=== PATIENT | male | born 1980 | race Caucasian/White ===

== ENCOUNTER 2018-11-08 18:35 | Inpatient (IN) | payer MEDICARE ==
[~2018-11-08] VITALS: Ht 170.2 cm; Wt 49.4 kg
--- NOTE | ~2018-11-08 | OP ---
[address] [address] OPERATIVE REPORT Name: JEANINE ACE JR Room: [address] IN .R.#: [id number] Admission: 11/08/18 Attend Phys: Franny Garcia MD Discharge: Date of : 82 Report #: [id number] THIS REPORT FOR: //name// CC: [facility] physician/PCP Franny Garcia SURGEON: Jose David Rebolledo MD PREOPERATIVE DIAGNOSES: Right ureteral stone with pain. POSTOPERATIVE DIAGNOSES: Right ureteral stone with pain. PROCEDURE: Panendoscopy, cystoscopy, right retrograde pyelogram, right ureteroscopy with laser stone, extraction of stone, multiple and double-J stent placement. No complications. INDICATIONS: This is a 38-year-old male who has severe right flank pain. He has a proximal right ureteral stone. He was given all options for treatment and he wished to have ureteroscopy with laser. He understands risk of bleeding, infection and other procedures. He understands that he will have a ureteral stent in place and that it must be removed. He understands also and voiced understanding that he knows there would be severe complications if he did not have the stent removed. He understands these risks and wished to proceed. I also informed him he has had bilateral kidney stones and that we would not operate on the left side, only the right but we get all the stones out that we could. DESCRIPTION OF PROCEDURE: Informed consent was obtained. The patient was sterilely prepped and draped in dorsolithotomy position and given appropriate antibiotics. Cystoscopy was carried out. He had somewhat of a deep bulbar stricture, but I was able to get the scope through it. No other abnormalities seen in the bladder. Right retrograde pyelogram was performed, which showed a filling defect in the proximal right ureter. A sensor wire and a ZIPwire were used as a safety wire and then the distal ureter was dilated using an 18-Persian balloon dilator. I did it very gently under hand pressure, only large enough to get the ureteral access sheath in. The 11 x 13 x 36 cm ureteral access sheath then was placed very easily and atraumatically up into the mid ureter level. The flexible ureteroscope was then used and the stone was first seen in the proximal ureter, broken into small pieces, that stone was very jagged but it broke into tiny pieces. There was only one that needed to be extracted with the 0 tip nitinol. I then looked up into the kidney and inspected all calices. I found 2 other stones which were then progressively broken up into small pieces. There were several pieces in the 2-3 mm range that I did extract and then the only thing left at the end were tiny pieces, 1 mm or less. There was no evidence of any other injuries or problems with the ureter. The ureteroscope was looked out and no injury from the ureteral access sheath or the ureteroscope. A 4.8 x 28 stent was then placed [place] [address] OPERATIVE REPORT Name: JEANINE ACE JR Room: [address] IN M..#: [id number] Admission: 11/08/18 Attend Phys: Franny Garcia MD Discharge: Date of : 82 Report #: [id number] and good curl in the bladder. The plan will be to remove the stent in approximately 7-10 days. He will also need a metabolic workup By: [id number] Rebolledo MD /nt
[~2018-11-08 18:35] MED LIST: ACETAMINOPHEN-1 EAC1 PO; ATIVAN1 MG PO; CIPRO500 MG PO; DEPAKOTE 250MG250 M1 PO; DIAZEPAM 5 MG5 M1 RECTAL; FLEXERIL PO; IBUPROFEN 800800 MG PO; PERCOCET; PERCOCET 7.5-31 EACH PO; VALIUM5 MG PO
[2018-11-08 18:43] VITALS: BP 123/72
[2018-11-08 19:32] LABS: ABSOLUTE LYMPHOCYTES 2.7 thou/uL (0.8-5.3); ABSOLUTE MONOCYTES 1.9 thou/uL (0.0-1.2); ABSOLUTE NEUTROPHILS 14.2 thou/uL (1.6-8.1); BASOPHILS 0.2 %; EOSINOPHILS 0.2 %; HEMOGLOBIN 13.5 gm/dL (14.0-18.0); LYMPHOCYTES 14.1 %; MCH 29.8 pg (26.0-34.0); MCHC 33.8 g/dL (28.0-37.0); MCV 88.2 fL (80.0-100.0); MONOCYTES 10.2 %; MPV 8.2 fl. (7.2-11.1); NUCLEATED RBCS 0 /100WBC; PLATELET COUNT* 256 thou/uL (150-400); POLYS 75.3 %; RBC 4.54 mil/uL (4.50-6.00); RDW-CV 12.7 % (10.5-14.5); WBC 18.9 thou/uL (4.0-11.0)
[2018-11-08 19:41] LABS: CALCIUM 9.4 mg/dL (8.5-10.1); CREATININE 1.3 mg/dL (0.6-1.3); POTASSIUM 3.3 mmol/L (3.5-5.1)
[2018-11-08 19:45] LABS: ALBUMIN 4.2 g/dL (3.4-5.0); TOTAL BILIRUBIN 0.5 mg/dL (<0.1-1.0); TOTAL PROTEIN 7.7 g/dL (6.4-8.2)
[2018-11-08 21:37] LABS: URINE BILIRUBIN NEGATIVE (Negative); URINE BLOOD 3+ (Negative); URINE CLARITY CLEAR; URINE COLOR YELLOW; URINE GLUCOSE-RANDOM NEGATIVE (Negative); URINE KETONES 1+ (Negative); URINE LEUKOCYTES-REFLEX NEGATIVE (Negative); URINE NITRITE-REFLEX NEGATIVE (Negative); URINE PROTEIN NEGATIVE (Negative); URINE UROBILINOGEN 0.2 E.U./dl (0.2-1.0)
[2018-11-08 21:44] LABS: AMP/METHAMP Negative (Negative); BARBITURATES Negative (Negative); BENZODIAZEPINES Negative (Negative); COCAINE Negative (Negative); METHADONE Negative (Negative); OPIATES POSITIVE (Negative); PCP Negative (Negative); THC Negative (Negative)
[2018-11-08 21:55] VITALS: BP 110/54
[2018-11-08 22:00] VITALS: BP 101/82
[2018-11-08 22:04] LABS: SQUAMOUS 0-3 Few /LPF (0-3)
[2018-11-08 22:05] LABS: CASTS None Seen /LPF (None Seen)
[2018-11-08 22:08] LABS: CALCIUM OXALATE 0-3 Few /LPF (None Seen); MUCUS 4-6 Moderate strn/LPF (None Seen); URINE RBC >20 Many /HPF (0-2); URINE WBC-REFLEX 0-5 Rare /HPF (0-5)
[2018-11-09 04:15] LABS: ABSOLUTE LYMPHOCYTES 2.5 thou/uL (0.8-5.3); ABSOLUTE MONOCYTES 1.2 thou/uL (0.0-1.2); ABSOLUTE NEUTROPHILS 5.8 thou/uL (1.6-8.1); BASOPHILS 0.4 %; EOSINOPHILS 0.4 %; HEMOGLOBIN 11.8 gm/dL (14.0-18.0); MCH 29.8 pg (26.0-34.0); MCHC 33.7 g/dL (28.0-37.0); MCV 88.5 fL (80.0-100.0); MONOCYTES 12.4 %; MPV 8.2 fl. (7.2-11.1); NUCLEATED RBCS 0 /100WBC; PLATELET COUNT* 200 thou/uL (150-400); POLYS 60.8 %; RBC 3.95 mil/uL (4.50-6.00); WBC 9.6 thou/uL (4.0-11.0)
[2018-11-09 04:25] LABS: CALCIUM 8.3 mg/dL (8.5-10.1); CREATININE 1.2 mg/dL (0.6-1.3)
--- NOTE | 2018-11-09 06:43 | NUR ---
PT ARRIVED 11/07/18 AT 2200, PT IS ALERT AND ORINETED, PT COMPLAINING OF CONTINUED LLQ PAIN AND NAUSEA, PT ASSESSMENT COMPLETE, VITAL SIGNS OBTAINED, PT INTRODUCED TO SURROUNDINGS, PT MEDICATED FOR PAIN AND NAUSEA, IVF INITIATED, PT EATS FOOD THAT BRINGS, NO VOMITING, THEN NPO AFTER MIDNIGHT, PT CONTINUES TO COMPLAIN OF ABD PAIN AND NAUSEA THROUGHOUT THE NIGHT, CONTROLLED WITH PO AND IV MEDICATIONS, PT VOIDS X1 DARK YELLOW, FOUL SMELLING URINE, NO CALCULI NOTED IN STRAINER, PT NOW RESTING WITH EYES CLOSED, CALL LIGHT WITHIN REACH, UROLOGY CONSULT HAS BEEN CALLED
[2018-11-09 08:10] VITALS: BP 97/64
--- NOTE | 2018-11-09 11:40 | EKG ---
[place] [address] ELECTROCARDIOGRAM REPORT Name: JEANINE ACE JR Room: [address] ADM IN M.R.#: [id number] Admission: 11/08/18 Attend Phys: Franny Garcia MD Discharge: Date of : 82 Report #: [id number] THIS REPORT FOR: //name// [facility] ED Test Date: 2018-11-08 Test Time: 19:33:35 Pat Name: JEANINE ACE Department: Room: [facility] Gender: M Training And Development Officer: Theresa LINDSEY : 1980 Requested By: Renu Melo Order Number: [id number] MD: Francis Urbina Measurements Intervals [place] Rate: 59 P: [place]: QRS: 70 QRSD: 157 T: 66 QT: 422 QTc: 418 Interpretive Statements nsr Nonspecific intraventricular conduction delay Compared to ECG 02/25/2014 10:46:29 Intraventricular conduction delay now present Sinus rhythm no longer present Short [place] interval no longer present Electronically Signed On 11-09-2018 11:39:53 CDT by Francis Urbina [email or web address] <ELECTRONICALLY SIGNED> By: Francis Urbina MD, [facility] 11/09/18 1139 32 32 Francis Urbina MD, [facility] /EPI
[2018-11-09 13:45] LABS: URINE BILIRUBIN NEGATIVE (Negative); URINE BLOOD NEGATIVE (Negative); URINE CLARITY CLEAR; URINE COLOR YELLOW; URINE GLUCOSE-RANDOM NEGATIVE (Negative); URINE KETONES NEGATIVE (Negative); URINE LEUKOCYTES-REFLEX NEGATIVE (Negative); URINE NITRITE-REFLEX NEGATIVE (Negative); URINE PROTEIN NEGATIVE (Negative); URINE SPECIFIC GRAVITY 1.025 (1.005-1.030); URINE UROBILINOGEN 0.2 E.U./dl (0.2-1.0)
[2018-11-09 16:00] VITALS: BP 98/52
--- NOTE | 2018-11-09 18:08 | NUR ---
ASSUMED CARE OF PATIENT AT APPROX 0730. ALERT AND ORIENTED X4. ASSESSMENT COMPLETED AND CHARTED. VSS ON ROOM. PAIN MANAGED WITH IV FENTANYL AND HYDROCODONE. FLUIDS INFUSED ORDERED. PATIENT USING URINAL AND URINE BEING STRAINED AND OBSERVED FOR STONE. PATIENT RESTED IN BED THROUGHOUT SHIFT. CALL LIGHT PLACED IN REACH AND PATIENT USES IT APPROPRIATELY. STAND BY ASSIST FOR AMBULATION. HOURLY ROUNDS COMPLETED. NURSING WILL CONTINUE TO MONITOR.
[2018-11-09 19:45] VITALS: BP 110/70
[2018-11-10 04:43] LABS: CALCIUM 8.5 mg/dL (8.5-10.1); CREATININE 1.1 mg/dL (0.6-1.3); POTASSIUM 4.2 mmol/L (3.5-5.1)
--- NOTE | 2018-11-10 05:49 | NUR ---
PT REMAINE ALERT AND ORIENTED. VITALS STABLE RA. MEDS GIVEN ORDERED. PAIN MANAGED WITH FENTANYL AND HYDROCODONE. NAUSEA RESOLVED WITH ZOFRAN. PT WALKED 200+ FEET IN HALLWAY WITH GAITBELT, CGA. NPO AT MIDNIGHT. WILL CONTINUE TO MONITOR.
[2018-11-10 08:00] VITALS: BP 109/53
[2018-11-10 08:38] LABS: ABSOLUTE EOSINOPHILS 0.3 thou/uL (0.0-0.7); ABSOLUTE LYMPHOCYTES 2.5 thou/uL (0.8-5.3); ABSOLUTE MONOCYTES 0.3 thou/uL (0.0-1.2); ABSOLUTE NEUTROPHILS 1.5 thou/uL (1.6-8.1); BASOPHILS 0.6 %; EOSINOPHILS 6.5 %; HEMATOCRIT 32.5 % (42.0-52.0); HEMOGLOBIN 11.1 gm/dL (14.0-18.0); LYMPHOCYTES 54.3 %; MCH 30.4 pg (26.0-34.0); MCHC 34.2 g/dL (28.0-37.0); MCV 88.9 fL (80.0-100.0); MONOCYTES 5.5 %; MPV 8.5 fl. (7.2-11.1); NUCLEATED RBCS 0 /100WBC; PLATELET COUNT* 170 thou/uL (150-400); POLYS 33.1 %; RBC 3.65 mil/uL (4.50-6.00); WBC 4.6 thou/uL (4.0-11.0)
[2018-11-10 08:53] LABS: ALBUMIN 3.1 g/dL (3.4-5.0); TOTAL BILIRUBIN 0.4 mg/dL (<0.1-1.0); TOTAL PROTEIN 5.7 g/dL (6.4-8.2)
[2018-11-10 17:35] VITALS: BP 134/67
--- NOTE | 2018-11-10 18:39 | NUR ---
PT A&Ox4. VITALS STABLE. PAIN CONTROLLED WITH FENTANYL. NAUSEA CONTROLLED WITH ZOFRAN. IV PATENT, INFUSING. URINE STRAINED, NO STONES FOUND. UP WITH ASSIST. TOLERATING SOME FOODS. WILL BE NPO AFTER MIDNIGHT. CALL LIGHT WITHIN REACH. WILL CONTINUE TO MONITOR.
[2018-11-10 21:10] VITALS: BP 100/64
--- NOTE | 2018-11-10 21:21 | CON ---
[address] [address] CONSULTATION Name: DBJEANINE BERUMEN Room: [address] IN .R.#: [id number] Admission: 11/08/18 Attend Phys: Franny Garcia MD Discharge: Date of : 82 Report #: [id number] THIS REPORT FOR: //name// CC: [facility] physician/PCP Franny Garcia DATE OF SERVICE: 11/09/2018 REFERRING PHYSICIAN: Dr. Garcia. REASON FOR CONSULTATION: Flank pain and urinary tract calculi. HISTORY OF PRESENT ILLNESS: This is a 38-year-old male who reports spontaneous passage of multiple stones in the past. Denies seeing urologist about these. Denies requiring stone procedures. He reports acute onset of left-sided flank pain, alternating with right-sided flank pain yesterday. This was accompanied by nausea. Denies fever, chills, vomiting, hematuria or dysuria. He reports some frequency and urgency. He was seen in the Emergency Department and admitted for further evaluation and management and Urology was consulted. He passed a stone in the Emergency Department, which was reportedly approximately 5 mm diameter. This has been sent for analysis. He reports persistent left flank pain despite that. PAST MEDICAL HISTORY: As above. 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 ALLERGIES: INCLUDE LATEX, VERSED AND PENICILLINS. MEDICATIONS: List is reviewed. He has been started on Rocephin empirically as well as Flomax for medical expulsive therapy. SOCIAL HISTORY: He denies use of tobacco or recreational drugs. Reports occasional alcohol use. FAMILY HISTORY: Significant for stones. He does not know of any other renal problems in the family. REVIEW OF SYSTEMS: As per the history of present illness. Denies cough, shortness of breath, chest pain or palpitations. No diarrhea or constipation. No dizziness or visual change. Otherwise, as per HPI. PHYSICAL EXAMINATION: VITAL SIGNS: Temperature 36.7, pulse 67, respirations 16, blood pressure 97/64. GENERAL: This is a 38-year-old male in no acute distress. He is awake, alert [place] [address] CONSULTATION Name: JEANINE ACE JAMAICA DAMICO Room: [address] IN [facility]#: [id number] Admission: 11/08/18 Attend Phys: Franny Garcia MD Discharge: Date of : 82 Report #: [id number] HEENT: Unremarkable. Extraocular movements are intact. Oropharynx is clear. NECK: Supple. No JVD. CHEST WALL: Nontender. CARDIOVASCULAR: Rhythm is regular. Radial pulses are palpable. Respiratory effort and excursion are normal. ABDOMEN: Soft, nontender, and nondistended. He reports tenderness in both costovertebral angles. Spine is nontender. EXTREMITIES: Warm. Moves all extremities. No peripheral edema. Radial pulses are palpable. LABORATORY DATA: Include hemoglobin 11.8, white count 9.6, platelet count 200,000. Sodium 144, potassium 4.0, chloride 111, CO2 of 22, BUN 30, creatinine 1.2, glucose 96. Urinalysis revealed greater than 20 red cells, 0-5 white cells. Blood cultures are pending. I have ordered a urine culture. Noncontrast CT scan revealed bilateral renal calcifications as well as mild left hydronephrosis and perinephric/periureteral stranding with a 5 x 3 mm calculus in the region of the left ureterovesical junction and a 5 x 4 x 3 mm calculus in the region of the right ureteropelvic junction. Follow up KUB today shows persistence of the right ureteropelvic junction calculus. The left-sided distal ureteral calculus is not visualized, likely related to his stone passage in the Emergency Department. Of note, contrast was noted in the bladder on the KUB. I spoke with Radiology about that and was told that the CT scan was originally ordered as a contrast study, but that he had a contrast extravasation at the IV site and so an injection was halted. Contrast on KUB is likely a result of excretion of the contrast. Some of the appearance of calcification on the CT scan may have been related to a small amount of intravenous contrast as well. IMPRESSION: Bilateral flank pain, possible bilateral renal calculi, right ureteropelvic junction stone (5 mm). Findings and options for management were discussed at length with the patient. We discussed medical expulsive therapy, outpatient ESWL for his right ureteropelvic junction calculus, inpatient versus outpatient cystoscopy with retrograde pyelogram, stent placement, possible right ureteroscopy. Risks and benefits of various approaches were discussed and he would like to try medical expulsive therapy. PLAN: He is on intravenous fluids, Flomax has been started. He is on empiric antibiotics. Stone analysis has been sent. We will follow up with a KUB and repeat BMP tomorrow and await results of his urine culture and stone analysis. <ELECTRONICALLY SIGNED> By: Jamaica Lindsey MD 11/10/18 2121 1315 0041Jamaica Lindsey MD /nt
--- NOTE | 2018-11-11 06:43 | NUR ---
PT REMAINED ALERT AND ORIENTED. VITALS, SpO2 STABLE. MEDS GIVEN ORDERED. PAIN MANAGED WITH FENTANYL AND HYDROCODONE. NPO AT MIDNIGHT FOR POSSIBLE UROLOGY PROCEDURE. WILL CONTINUE TO MONITOR.
[2018-11-11 08:00] VITALS: BP 120/70
[2018-11-11 10:01] VITALS: BP 120/70
--- NOTE | 2018-11-11 14:22 | NUR ---
PT ARRIVED BACK FROM SURGERY ABOUT 1415. STABLE. IN SOME PAIN, TOLERABLE. VITALS STABLE. WILL CONTINUE TO MONITOR.
[2018-11-11 15:27] VITALS: BP 129/80
[2018-11-11 16:58] VITALS: BP 129/80
[2018-11-11] MEDS ORDERED: NORCO 5-325 TA1 EACH PO (17:12)
[2018-11-11] MEDS ORDERED: CIPRO250 M1 PO (17:12)
[2018-11-11] MEDS ORDERED: LEVSIN0.125 MG PO (17:13)
[2018-11-11 17:50] VITALS: BP 132/64
--- NOTE | 2018-11-11 18:18 | NUR ---
PT LEFT UNIT AT 1818 BY WHEELCHAIR WITH NURSING STAFF AND TO HOME. VITALS STABLE. PAIN CONTROLLED WITH ORAL MEDICATIONS. PAPER PRESCRIPTIONS AND CARE NOTES GIVEN. IV OUT. PERSONAL BELONGINGS SENT WITH PT.
== END 2018-11-11 18:18 | disposition home or self-care (01) | DRG 659 ==
LOC: M.ERS 18:35 → M.ORTHSURG 21:26 → M.TBA-ER 21:26 → M.ORTHSURG 21:58
PROVIDERS: Internal Medicine; Nurse Practitioner Family; Urology; ADMIT Family Medicine
PROC: 0T768DZ Dilation of Right Ureter with Intraluminal Device, Via Natural or Artificial Opening Endoscopic (ICD-10-PCS; principal; 2018-11-08)
PROC: 0TC68ZZ Extirpation of Matter from Right Ureter, Via Natural or Artificial Opening Endoscopic (ICD-10-PCS; principal; 2018-11-08)
PROC: BT1D1ZZ Fluoroscopy of Right Kidney, Ureter and Bladder using Low Osmolar Contrast (ICD-10-PCS; principal; 2018-11-08)
DX: N13.2 Hydronephrosis with renal and ureteral calculous obstruction (principal); R65.11 Systemic inflammatory response syndrome (SIRS) of non-infectious origin with acute organ dysfunction; E44.0 Moderate protein-calorie malnutrition; Z68.1 Body mass index [BMI] 19.9 or less, adult; N17.0 Acute kidney failure with tubular necrosis; G43.909 Migraine, unspecified, not intractable, without status migrainosus; J44.9 Chronic obstructive pulmonary disease, unspecified; F32.9 Major depressive disorder, single episode, unspecified; G89.29 Other chronic pain; M54.9 Dorsalgia, unspecified; N18.9 Chronic kidney disease, unspecified; F17.220 Nicotine dependence, chewing tobacco, uncomplicated; Z86.73 Personal history of transient ischemic attack (TIA), and cerebral infarction without residual deficits; Z90.49 Acquired absence of other specified parts of digestive tract; Z88.0 Allergy status to penicillin; Z88.8 Allergy status to other drugs, medicaments and biological substances; Z91.040 Latex allergy status

== ENCOUNTER 2018-11-14 20:41 | Emergency (ER) | payer MEDICARE ==
[~2018-11-14] VITALS: Ht 175.3 cm; Wt 56.7 kg
[~2018-11-14 20:41] MED LIST changes: +CIPRO250 M1 PO; +LEVSIN0.125 MG PO; +NORCO 5-325 TA1 EACH PO
[2018-11-14 21:11] LABS: ABSOLUTE EOSINOPHILS 0.7 thou/uL (0.0-0.7); ABSOLUTE LYMPHOCYTES 1.7 thou/uL (0.8-5.3); ABSOLUTE MONOCYTES 0.6 thou/uL (0.0-1.2); ABSOLUTE NEUTROPHILS 6.1 thou/uL (1.6-8.1); BASOPHILS 0.4 %; EOSINOPHILS 7.6 %; HEMATOCRIT 40.6 % (42.0-52.0); HEMOGLOBIN 13.7 gm/dL (14.0-18.0); LYMPHOCYTES 18.9 %; MCH 30.1 pg (26.0-34.0); MCHC 33.8 g/dL (28.0-37.0); MCV 89.2 fL (80.0-100.0); MONOCYTES 6.9 %; MPV 7.8 fl. (7.2-11.1); NUCLEATED RBCS 0 /100WBC; PLATELET COUNT* 243 thou/uL (150-400); POLYS 66.2 %; RBC 4.55 mil/uL (4.50-6.00); RDW-CV 13.2 % (10.5-14.5); WBC 9.2 thou/uL (4.0-11.0)
[2018-11-14 21:14] LABS: POTASSIUM 4.3 mmol/L (3.5-5.1)
[2018-11-14 23:54] LABS: URINE BILIRUBIN NEGATIVE (Negative); URINE BLOOD 3+ (Negative); URINE CLARITY CLEAR; URINE COLOR DARK YELLOW; URINE GLUCOSE-RANDOM NEGATIVE (Negative); URINE KETONES TRACE (Negative); URINE LEUKOCYTES-REFLEX 1+ (Negative); URINE NITRITE-REFLEX NEGATIVE (Negative); URINE PROTEIN 2+ (Negative); URINE UROBILINOGEN 0.2 E.U./dl (0.2-1.0)
[2018-11-15 00:03] LABS: BACTERIA-REFLEX 1-9 Few /HPF (None Seen); CASTS None Seen /LPF (None Seen); CRYSTALS None Seen /LPF (None Seen); MUCUS 0-3 Light strn/LPF (None Seen); SQUAMOUS 0-3 Few /LPF (0-3); URINE RBC >20 Many /HPF (0-2); URINE WBC-REFLEX 0-5 Rare /HPF (0-5)
[2018-11-15] MEDS ORDERED: FLEXERIL PO (00:26)
[2018-11-15] MEDS ORDERED: HYDROCODON-ACE1 EAC5 PO (00:26)
[2018-11-15 00:54] VITALS: BP 102/65
== END 2018-11-15 00:54 | disposition home or self-care (01) ==
LOC: M.ERS 20:41
PROVIDERS: Emergency Medicine
DX: N23 Unspecified renal colic (principal); G43.909 Migraine, unspecified, not intractable, without status migrainosus; J44.9 Chronic obstructive pulmonary disease, unspecified; Z90.49 Acquired absence of other specified parts of digestive tract; Z88.0 Allergy status to penicillin; Z91.040 Latex allergy status; Z88.8 Allergy status to other drugs, medicaments and biological substances

== ENCOUNTER 2020-09-02 18:27 | Emergency (ER) | payer MEDICARE ==
[~2020-09-02] VITALS: Ht 175.3 cm; Wt 56.7 kg
[~2020-09-02 18:27] MED LIST changes: +HYDROCODON-ACE1 EAC5 PO
[2020-09-02] MEDS ORDERED: IMITREX100 MG PO (18:38)
[2020-09-02 18:54] LABS: ABSOLUTE BASOPHILS 0.1 thou/uL (0.0-0.2); ABSOLUTE EOSINOPHILS 0.2 thou/uL (0.0-0.7); ABSOLUTE LYMPHOCYTES 1.8 thou/uL (0.8-5.3); ABSOLUTE MONOCYTES 0.5 thou/uL (0.0-1.2); BASOPHILS 0.9 %; EOSINOPHILS 3.5 %; HEMOGLOBIN 13.6 gm/dL (14.0-18.0); LYMPHOCYTES 27.4 %; MCH 30.2 pg (26.0-34.0); MCHC 33.9 g/dL (28.0-37.0); MCV 89.3 fL (80.0-100.0); MONOCYTES 7.4 %; MPV 7.7 fl. (7.2-11.1); NUCLEATED RBCS 0 /100WBC; PLATELET COUNT* 218 thou/uL (150-400); POLYS 60.8 %; RBC 4.48 mil/uL (4.50-6.00); RDW-CV 13.5 % (10.5-14.5); WBC 6.6 thou/uL (4.0-11.0)
[2020-09-02 19:04] LABS: CALCIUM 9.3 mg/dL (8.5-10.1); POTASSIUM 3.8 mmol/L (3.5-5.1)
[2020-09-02 19:06] LABS: ALBUMIN 4.1 g/dL (3.4-5.0); TOTAL BILIRUBIN 0.3 mg/dL (<0.1-1.0); TOTAL PROTEIN 7.4 g/dL (6.4-8.2)
[2020-09-02 19:44] LABS: URINE BILIRUBIN NEGATIVE (Negative); URINE BLOOD NEGATIVE (Negative); URINE CLARITY CLEAR; URINE COLOR YELLOW; URINE GLUCOSE-RANDOM NEGATIVE (Negative); URINE KETONES NEGATIVE (Negative); URINE LEUKOCYTES-REFLEX NEGATIVE (Negative); URINE NITRITE-REFLEX NEGATIVE (Negative); URINE PROTEIN NEGATIVE (Negative); URINE UROBILINOGEN 0.2 E.U./dl (0.2-1.0)
[2020-09-02 21:16] VITALS: BP 132/65
--- NOTE | 2020-09-05 13:32 | EKG ---
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: : 1980 Requested By: Toro Land Order Number: [id number] Reading MD: Raul Gatica Measurements Intervals [place] Rate: 79 P: 57 MS: 95 QRS: 73 QRSD: 83 T: 75 QT: 356 QTc: 409 Interpretive Statements Sinus rhythm Short MS interval Abnormal R-wave progression, early transition Compared to ECG 11/08/2018 19:33:35 Short MS interval now present Intraventricular conduction delay no longer present Electronically Signed On 09-05-2020 13:32:29 [employer] by Raul Gatica [email or web address] <ELECTRONICALLY SIGNED> By: Raul Gatica MD, [facility] 09/05/20 1332 31 31 Raul Gatica MD, [facility] /EPI
== END 2020-09-02 21:17 | disposition home or self-care (01) ==
LOC: M.ERS 18:27
PROVIDERS: Physician Assistant
DX: G43.909 Migraine, unspecified, not intractable, without status migrainosus (principal); J44.9 Chronic obstructive pulmonary disease, unspecified; Z91.040 Latex allergy status; Z88.0 Allergy status to penicillin; Z88.8 Allergy status to other drugs, medicaments and biological substances; Z86.73 Personal history of transient ischemic attack (TIA), and cerebral infarction without residual deficits; Z90.49 Acquired absence of other specified parts of digestive tract

== ENCOUNTER 2020-10-09 13:40 | Emergency (ER) | payer MEDICARE ==
[~2020-10-09] VITALS: Ht 175.3 cm; Wt 54.4 kg
[~2020-10-09 13:40] MED LIST changes: +IMITREX100 MG PO
[2020-10-09 14:14] LABS: HEMATOCRIT 42.3 % (42.0-52.0); HEMOGLOBIN 14.2 gm/dL (14.0-18.0); MCH 30.1 pg (26.0-34.0); MCHC 33.6 g/dL (28.0-37.0); MCV 89.7 fL (80.0-100.0); MPV 7.7 fl. (7.2-11.1); RBC 4.72 mil/uL (4.50-6.00); WBC 6.1 thou/uL (4.0-11.0)
[2020-10-09 14:25] LABS: CREATININE 1.1 mg/dL (0.6-1.3)
[2020-10-09 14:30] LABS: ALBUMIN 4.2 g/dL (3.4-5.0); TOTAL BILIRUBIN 0.3 mg/dL (<0.1-1.0); TOTAL PROTEIN 7.5 g/dL (6.4-8.2)
[2020-10-09 15:01] VITALS: BP 105/65
--- NOTE | 2020-10-10 11:14 | EKG ---
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 : 1980 Requested By: Preet Michelle Order Number: [id number] MD: Zachary Gallagher Measurements Intervals [place] Rate: 105 P: 81 NV: 105 QRS: 68 QRSD: 83 T: 69 QT: 321 QTc: 425 Interpretive Statements Sinus tachycardia RSR' in V1 or V2, right VCD or RVH Compared to ECG 09/02/2020 18:32:32 RSR' in V1 or V2 now present Sinus rhythm no longer present Electronically Signed On 10-10-2020 11:14:15 CDT by Zachary Gallagher [email or web address] <ELECTRONICALLY SIGNED> By: Zachary Gallagher MD, FAC 10/10/20 1114 1345 1345 Zachary Gallagher MD, FAC /EPI
== END 2020-10-09 15:02 | disposition home or self-care (01) ==
LOC: M.ERS 13:40
PROVIDERS: Emergency Medicine
DX: M25.511 Pain in right shoulder (principal); J44.9 Chronic obstructive pulmonary disease, unspecified; G43.909 Migraine, unspecified, not intractable, without status migrainosus; Z91.040 Latex allergy status; Z88.0 Allergy status to penicillin; Z88.8 Allergy status to other drugs, medicaments and biological substances; Z86.73 Personal history of transient ischemic attack (TIA), and cerebral infarction without residual deficits; Z90.49 Acquired absence of other specified parts of digestive tract; Z87.442 Personal history of urinary calculi

== ENCOUNTER 2020-10-14 17:39 | Emergency (ER) | payer MEDICARE ==
[~2020-10-14] VITALS: Ht 175.3 cm; Wt 56.7 kg
[2020-10-14 18:46] VITALS: BP 117/76
== END 2020-10-14 18:46 | disposition home or self-care (01) ==
LOC: M.ERS 17:39
DX: F45.8 Other somatoform disorders (principal); J44.9 Chronic obstructive pulmonary disease, unspecified; G43.909 Migraine, unspecified, not intractable, without status migrainosus; Z91.040 Latex allergy status; Z88.0 Allergy status to penicillin; Z88.8 Allergy status to other drugs, medicaments and biological substances; Z90.49 Acquired absence of other specified parts of digestive tract; Z86.73 Personal history of transient ischemic attack (TIA), and cerebral infarction without residual deficits; Z87.442 Personal history of urinary calculi

== ENCOUNTER 2020-11-16 15:02 | Emergency (ER) | payer MEDICARE ==
[~2020-11-16] VITALS: Ht 175.3 cm; Wt 56.7 kg
[2020-11-16 15:36] LABS: ABSOLUTE EOSINOPHILS 0.6 thou/uL (0.0-0.7); ABSOLUTE LYMPHOCYTES 1.3 thou/uL (0.8-5.3); ABSOLUTE MONOCYTES 0.5 thou/uL (0.0-1.2); ABSOLUTE NEUTROPHILS 4.4 thou/uL (1.6-8.1); BASOPHILS 0.7 %; EOSINOPHILS 8.8 %; HEMOGLOBIN 14.5 gm/dL (14.0-18.0); LYMPHOCYTES 19.4 %; MCH 30.8 pg (26.0-34.0); MCHC 34.5 g/dL (28.0-37.0); MCV 89.2 fL (80.0-100.0); MPV 7.6 fl. (7.2-11.1); NUCLEATED RBCS 0 /100WBC; PLATELET COUNT* 252 thou/uL (150-400); POLYS 64.1 %; RBC 4.71 mil/uL (4.50-6.00); RDW-CV 13.3 % (10.5-14.5); WBC 6.9 thou/uL (4.0-11.0)
[2020-11-16 15:45] LABS: CALCIUM 9.2 mg/dL (8.5-10.1); POTASSIUM 3.7 mmol/L (3.5-5.1)
[2020-11-16 15:56] LABS: ALBUMIN 4.2 g/dL (3.4-5.0); TOTAL BILIRUBIN 0.6 mg/dL (<0.1-1.0); TOTAL PROTEIN 8.2 g/dL (6.4-8.2)
[2020-11-16 16:29] LABS: INFLUENZA A ANTIGEN Negative (Negative); INFLUENZA B ANTIGEN Negative (Negative)
[2020-11-16] MEDS ORDERED: ALBUTEROL2.5 MG/3 M INH (16:38)
[2020-11-16] MEDS ORDERED: PREDNISONE 10 M10 MG PO (16:38)
[2020-11-16] MEDS ORDERED: DOXYCYCLINE 10100 M2 PO (16:38)
[2020-11-16 16:52] VITALS: BP 134/77
--- NOTE | 2020-11-17 09:36 | EKG ---
[place] [address] ELECTROCARDIOGRAM REPORT Name: JEANINE ACE JR Room: [facility]#: [id number] Admission: 11/16/20 Attend Phys: Discharge: 11/16/20 Date of : 82 Date of Service: 11/16/20 1602 Report #: [id number] THIS REPORT FOR: //name// [facility] ED Test Date: 2020-11-16 Test Time: 16:02:47 Pat Name: JEANINE ACE Department: Room: Gender: Entry Level Account Manager: [facility] : 1980 Requested By: Haylee Frost Order Number: [id number] MD: Zachary Gallagher Measurements Intervals [place] Rate: 87 P: 60 MD: 112 QRS: 51 QRSD: 88 T: 53 QT: 348 QTc: 419 Interpretive Statements Sinus rhythm Borderline short MD interval RSR' in V1 or V2, right VCD or RVH Baseline wander in lead(s) V2 Compared to ECG 10/09/2020 13:45:26 Sinus tachycardia no longer present Electronically Signed On 11-17-2020 9:36:37 CDT by Zachary Gallagher [email or web address] <ELECTRONICALLY SIGNED> By: Zachary Gallagher MD, FAC 11/17/20 0936 1602 1602 Zachary Gallagher MD, FAC /EPI
== END 2020-11-16 16:53 | disposition home or self-care (01) ==
LOC: M.ERS 15:02
PROVIDERS: Nurse Practitioner Family
DX: J44.1 Chronic obstructive pulmonary disease with (acute) exacerbation (principal); Z20.822 Contact with and (suspected) exposure to COVID-19; G43.909 Migraine, unspecified, not intractable, without status migrainosus; F17.210 Nicotine dependence, cigarettes, uncomplicated; Z90.49 Acquired absence of other specified parts of digestive tract; Z86.73 Personal history of transient ischemic attack (TIA), and cerebral infarction without residual deficits; Z79.899 Other long term (current) drug therapy; Z91.040 Latex allergy status; Z88.8 Allergy status to other drugs, medicaments and biological substances; Z88.0 Allergy status to penicillin

== ENCOUNTER 2021-01-02 17:51 | Emergency (ER) | payer MEDICARE ==
[~2021-01-02] VITALS: Ht 175.3 cm; Wt 56.7 kg
[~2021-01-02 17:51] MED LIST changes: +ALBUTEROL2.5 MG/3 M INH; +DOXYCYCLINE 10100 M2 PO; +PREDNISONE 10 M10 MG PO
[2021-01-02 18:00] VITALS: BP 128/71
--- NOTE | 2021-01-03 16:38 | EKG ---
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 /EPI
== END 2021-01-02 18:19 | disposition home or self-care (01) ==
LOC: M.ERS 17:51
DX: R07.89 Other chest pain (principal); G43.909 Migraine, unspecified, not intractable, without status migrainosus; J44.9 Chronic obstructive pulmonary disease, unspecified; Z88.0 Allergy status to penicillin; Z91.040 Latex allergy status; Z88.8 Allergy status to other drugs, medicaments and biological substances; Z90.49 Acquired absence of other specified parts of digestive tract; Z86.73 Personal history of transient ischemic attack (TIA), and cerebral infarction without residual deficits; Z87.442 Personal history of urinary calculi

== ENCOUNTER 2021-03-20 06:08 | Emergency (ER) | payer MEDICARE ==
[~2021-03-20] VITALS: Ht 175.3 cm; Wt 78.0 kg
[2021-03-20 06:54] LABS: HEMATOCRIT 36.3 % (42.0-52.0); HEMOGLOBIN 12.5 gm/dL (14.0-18.0); MCH 30.3 pg (26.0-34.0); MCHC 34.5 g/dL (28.0-37.0); MCV 87.8 fL (80.0-100.0); MPV 7.6 fl. (7.2-11.1); RBC 4.13 mil/uL (4.50-6.00); RDW-CV 13.2 % (10.5-14.5); WBC 8.4 thou/uL (4.0-11.0)
[2021-03-20 07:06] LABS: CALCIUM 8.8 mg/dL (8.5-10.1); CREATININE 1.3 mg/dL (0.6-1.3)
[2021-03-20 07:07] LABS: POTASSIUM 2.8 mmol/L (3.5-5.1)
[2021-03-20 07:10] LABS: ALBUMIN 3.9 g/dL (3.4-5.0); TOTAL BILIRUBIN 0.7 mg/dL (<0.1-1.0); TOTAL PROTEIN 7.3 g/dL (6.4-8.2)
[2021-03-20 09:28] LABS: CALCIUM 8.8 mg/dL (8.5-10.1); CREATININE 1.3 mg/dL (0.6-1.3)
[2021-03-20] MEDS ORDERED: K-DUR 20 MEQ T20 MEQ PO (09:52)
[2021-03-20] MEDS ORDERED: FLEXERIL PO (09:52)
[2021-03-20] MEDS ORDERED: ALBUTEROL2.5 MG/3 M INH (09:52)
[2021-03-20] MEDS ORDERED: PREDNISONE50 MG PO (09:52)
[2021-03-20 10:21] VITALS: BP 108/67
--- NOTE | 2021-03-20 12:50 | EKG ---
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1980 Requested By: Golden Cuellar Order Number: [id number] MD: Gurinder Clarke Measurements Intervals [place] Rate: 93 P: 68 PA: 115 QRS: 58 QRSD: 92 T: 59 QT: 342 QTc: 426 Interpretive Statements Sinus rhythm Borderline short PA interval Compared to ECG 01/02/2021 17:57:23 Right ventricular hypertrophy no longer present Electronically Signed On 03-20-2021 12:50:00 CDT by Gurinder Clarke [email or web address] <ELECTRONICALLY SIGNED> By: Gurinder Clarke MD, [facility] 03/20/21 1250 0629 0629 Gurinder Clarke MD, [facility] /EPI
--- NOTE | 2021-03-20 12:52 | EKG ---
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 /EPI
== END 2021-03-20 10:22 | disposition home or self-care (01) ==
LOC: M.ERS 06:08
PROVIDERS: Emergency Medicine Emergency Medical Services; Personal Emergency Response Attendant
DX: J44.1 Chronic obstructive pulmonary disease with (acute) exacerbation (principal); Z20.822 Contact with and (suspected) exposure to COVID-19; G43.909 Migraine, unspecified, not intractable, without status migrainosus; Z72.0 Tobacco use; Z87.442 Personal history of urinary calculi; Z90.49 Acquired absence of other specified parts of digestive tract; Z79.51 Long term (current) use of inhaled steroids; Z79.899 Other long term (current) drug therapy; Z88.0 Allergy status to penicillin; Z88.8 Allergy status to other drugs, medicaments and biological substances; Z91.040 Latex allergy status

== ENCOUNTER 2021-05-08 20:19 | Emergency (ER) | payer MEDICARE ==
[~2021-05-08] VITALS: Ht 175.3 cm; Wt 59.0 kg
[~2021-05-08 20:19] MED LIST changes: +K-DUR 20 MEQ T20 MEQ PO; +PREDNISONE50 MG PO
[2021-05-08 21:36] LABS: ABSOLUTE EOSINOPHILS 0.2 thou/uL (0.0-0.7); ABSOLUTE LYMPHOCYTES 1.3 thou/uL (0.8-5.3); ABSOLUTE MONOCYTES 0.4 thou/uL (0.0-1.2); ABSOLUTE NEUTROPHILS 4.6 thou/uL (1.6-8.1); BASOPHILS 0.7 %; EOSINOPHILS 2.6 %; HEMATOCRIT 36.2 % (42.0-52.0); HEMOGLOBIN 12.2 gm/dL (14.0-18.0); LYMPHOCYTES 20.1 %; MCH 30.3 pg (26.0-34.0); MCHC 33.8 g/dL (28.0-37.0); MCV 89.4 fL (80.0-100.0); MONOCYTES 6.6 %; MPV 7.3 fl. (7.2-11.1); NUCLEATED RBCS 0 /100WBC; PLATELET COUNT* 220 thou/uL (150-400); RBC 4.05 mil/uL (4.50-6.00); RDW-CV 13.6 % (10.5-14.5); WBC 6.6 thou/uL (4.0-11.0)
[2021-05-08 21:42] LABS: CALCIUM 8.4 mg/dL (8.5-10.1); CREATININE 1.2 mg/dL (0.6-1.3); POTASSIUM 3.9 mmol/L (3.5-5.1)
[2021-05-08 23:42] VITALS: BP 114/72
== END 2021-05-08 23:42 | disposition home or self-care (01) ==
LOC: M.ERS 20:19
PROVIDERS: Emergency Medicine
DX: R51.9 Headache, unspecified (principal); G43.909 Migraine, unspecified, not intractable, without status migrainosus; J44.9 Chronic obstructive pulmonary disease, unspecified; Z90.49 Acquired absence of other specified parts of digestive tract; Z79.899 Other long term (current) drug therapy; Z91.040 Latex allergy status; Z88.0 Allergy status to penicillin

== ENCOUNTER 2021-07-21 13:05 | Emergency (ER) | payer MEDICARE ==
[~2021-07-21] VITALS: Ht 175.3 cm; Wt 59.0 kg
[2021-07-21] MEDS ORDERED: ALBUTEROL2.5 MG/31 INH (13:11)
[2021-07-21] MEDS ORDERED: PROAIR HFA8.5 GM INH (13:11)
[2021-07-21 13:47] LABS: HEMATOCRIT 44.8 % (42.0-52.0); MCHC 33.4 g/dL (28.0-37.0); MCV 89.8 fL (80.0-100.0); MPV 7.7 fl. (7.2-11.1); RBC 4.99 mil/uL (4.50-6.00); RDW-CV 13.3 % (10.5-14.5); WBC 10.8 thou/uL (4.0-11.0)
[2021-07-21 13:57] LABS: CALCIUM 9.2 mg/dL (8.5-10.1); CREATININE 1.2 mg/dL (0.6-1.3); POTASSIUM 3.6 mmol/L (3.5-5.1)
[2021-07-21] MEDS ORDERED: MEDROLDOSEPACK PO (14:09)
[2021-07-21 14:26] VITALS: BP 116/80
--- NOTE | 2021-07-21 14:42 | EKG ---
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 Tech: : 1980 Requested By: Toro Land Order Number: [id number] MD: Zachary Gallagher Measurements Intervals [place] Rate: 85 P: 71 MO: 122 QRS: 70 QRSD: 101 T: 53 QT: 342 QTc: 407 Interpretive Statements Sinus rhythm RSR' in V1 or V2, right VCD or RVH Compared to ECG 03/20/2021 08:50:44 No significant changes Electronically Signed On 07-21-2021 14:41:52 FINAL ASSEMBLER [employer]AT by Zachary Gallagher [email or web address] <ELECTRONICALLY SIGNED> By: Zachary Gallagher MD, [facility] 07/21/21 1441 1318 1318 Zachary Gallagher MD, [facility] /EPI
== END 2021-07-21 14:27 | disposition home or self-care (01) ==
LOC: M.ERS 13:05
PROVIDERS: Physician Assistant
DX: J44.1 Chronic obstructive pulmonary disease with (acute) exacerbation (principal); G43.909 Migraine, unspecified, not intractable, without status migrainosus; F17.220 Nicotine dependence, chewing tobacco, uncomplicated; Z90.49 Acquired absence of other specified parts of digestive tract; Z87.442 Personal history of urinary calculi; Z98.2 Presence of cerebrospinal fluid drainage device; Z79.899 Other long term (current) drug therapy; Z91.040 Latex allergy status; Z88.0 Allergy status to penicillin; Z88.8 Allergy status to other drugs, medicaments and biological substances